=== PATIENT | male | born 1990 | race Caucasian/White ===

== ENCOUNTER → 2020-07-15 | Outpatient (REF) | payer OTHER ==
[~2020-07-15] MED LIST: MAPA325T8 PO
== END ==
LOC: M LAB REF 09:22
PROVIDERS: ATTEND Surgery
DX: Z20.828 Contact with and (suspected) exposure to other viral communicable diseases (principal)

== ENCOUNTER 2022-08-21 21:09 | Emergency (ER) | payer OTHER, SELFPAY ==
[2022-08-21 22:07] VITALS: BP 131/79; TEMP 98.3; O2SAT 100
[2022-08-21 22:41] LABS: HEMATOCRIT 41.5 % (42.0-52.0); HEMOGLOBIN 12.8 g/dl (13.5-17.5); MEAN CORPUSCULAR HEMOGLOBIN 26.7 pg (27.0-33.0); MEAN CORPUSCULAR HGB CONC 30.8 g/dl (32.0-36.5); MEAN CORPUSCULAR VOLUME 86.5 fl (80.0-96.0); PLATELET COUNT, AUTOMATED 300 10^3/uL (150-450); WHITE BLOOD COUNT 12.4 10^3/uL (4.0-10.0)
[2022-08-21] MEDS ORDERED: HOME MED LIST COMPLETE! XX SCH (22:50)
[2022-08-21 22:52] LABS: ETHYL ALCOHOL (ETHANOL) < 0.003 % (0.000-0.010)
[2022-08-21 22:53] LABS: SALICYLATE LEVEL < 3.0 MG/DL (<30)
[2022-08-21 22:54] LABS: ACETAMINOPHEN LEVEL < 2.0 UG/ML (10.0-20.0); ALKALINE PHOSPHATASE 75 U/L (46-116); ALT/SGPT 119 U/L (7.0-40); AST/SGOT 60 U/L (<34); BILIRUBIN,DIRECT 0.3 MG/DL (<0.4); BILIRUBIN,TOTAL 1.1 MG/DL (0.3-1.2); BLOOD UREA NITROGEN 24 MG/DL (9-23); CALCIUM LEVEL 9.6 MG/DL (8.5-10.1); CARBON DIOXIDE LEVEL 24 MMOL/L (20-31); CHLORIDE LEVEL 112 MMOL/L (98-107); CREATININE FOR GFR 1.01 MG/DL (0.70-1.30); GLOMERULAR FILTRATION RATE > 60.0 (>60); GLUCOSE, FASTING 137 MG/DL (60-100); POTASSIUM SERUM 3.4 MMOL/L (3.5-5.1); SODIUM LEVEL 148 MMOL/L (136-145); TOTAL PROTEIN 8.7 G/DL (5.7-8.2)
[2022-08-21 22:56] LABS: THYROID STIMULATING HORMONE 0.733 uIU/ML (0.55-4.78)
== END 2022-08-21 23:41 | disposition home or self-care (01) ==
LOC: M ED 21:09
DX: F19.10 Other psychoactive substance abuse, uncomplicated (principal); F17.200 Nicotine dependence, unspecified, uncomplicated; F43.0 Acute stress reaction

== ENCOUNTER 2024-12-06 21:40 | Inpatient (IN) | payer OTHER, SELFPAY ==
[~2024-12-06] VITALS: Ht 175.3 cm; Wt 83.0 kg
[2024-12-06 13:45] VITALS: BP 127/85; TEMP 98.2; O2SAT 100
[2024-12-06 22:14] LABS: PLATELET COUNT, AUTOMATED 240 10^3/uL (150-450)
[2024-12-06 22:47] LABS: ETHYL ALCOHOL (ETHANOL) < 0.003 % (0.000-0.010)
[2024-12-06 22:49] LABS: ALT/SGPT 129 U/L (7.0-40); AST/SGOT 60 U/L (<34); CALCIUM LEVEL 9.1 MG/DL (8.5-10.1); CARBON DIOXIDE LEVEL 26 MMOL/L (20-31); CHLORIDE LEVEL 104 MMOL/L (98-107); CREATININE FOR GFR 0.97 MG/DL (0.70-1.30); GLOMERULAR FILTRATION RATE > 90.0 (>60); POTASSIUM SERUM 4.0 MMOL/L (3.5-5.1); SALICYLATE LEVEL < 3.0 MG/DL (<30); SODIUM LEVEL 139 MMOL/L (136-145)
[2024-12-06] MEDS: LIDOCAINE 2% MDV 20 ML VIAL SC ONE (23:11)
[2024-12-07 01:28] LABS: AMPHETAMINES LEVEL URINE POSITIVE (NEGATIVE); BARBITURATES URINE NEGATIVE (NEGATIVE); BENZODIAZEPINES URINE NEGATIVE (NEGATIVE); CANNABINOIDS URINE NEGATIVE (NEGATIVE); COCAINE METABOLITE URINE POSITIVE (NEGATIVE); METHADONE URINE NEGATIVE (NEGATIVE); OPIATES URINE POSITIVE (NEGATIVE); PHENCYCLIDINE URINE NEGATIVE (NEGATIVE)
[2024-12-07] MEDS ORDERED: BUPR150T12 PO (02:11)
[2024-12-07] MEDS ORDERED: ADDE20TA PO (02:11)
[2024-12-07] MEDS ORDERED: HOME MED LIST COMPLETE! XX SCH (02:15)
[2024-12-07] MEDS: NICOTINE 14 MG/24 HR TRANSDERMAL TD SCH (09:00)
[2024-12-07] MEDS ORDERED: ACETAMINOPHEN 325 MG TAB PO PRN (11:35)
[2024-12-07] MEDS ORDERED: MOM 30 ML SUSPENSION UDC PO PRN (11:35)
[2024-12-07] MEDS ORDERED: MAALOX 30 ML SUSP *UDC PO PRN (11:35)
[2024-12-07] MEDS ORDERED: LOPERAMIDE 2 MG CAPLET PO PRN (11:40)
[2024-12-07] MEDS ORDERED: METH-1175 PO (11:56)
[2024-12-07] MEDS: METHADONE 10 MG TAB PO ONE (12:05)
[2024-12-07] MEDS: OLANZapine 5 MG TAB PO PRN (17:24)
[2024-12-08 06:44] VITALS: BP 122/73; TEMP 98.5; O2SAT 100
[2024-12-08] MEDS: ONDANSETRON 4MG ORAL DISINTEGRATING TAB PO PRN (06:50)
[2024-12-08] MEDS: DICYCLOMINE 10 MG CAP PO PRN (06:50)
[2024-12-08] MEDS: LORazepam 1 MG TAB PO PRN (06:55)
[2024-12-08 07:35] VITALS: BP 142/84; TEMP 98.3; O2SAT 100
[2024-12-08] MEDS ORDERED: HOME MED LIST COMPLETE! XX SCH (08:00)
[2024-12-08] MEDS: METHADONE 10 MG TAB PO ONE ×2 (08:35→16:02)
[2024-12-08] MEDS: HALOPERIDOL 5 MG TAB PO PRN (11:00)
[2024-12-08 11:50] VITALS: BP 155/77; TEMP 99.6; O2SAT 100
[2024-12-08] MEDS: AUGMENTIN 875 MG TAB PO SCH (14:07)
[2024-12-08] MEDS: DOXYCYCLINE HYCLATE 100 MG TABLET PO SCH (14:07)
[2024-12-08 15:26] VITALS: BP 141/69; TEMP 98.7; O2SAT 100
[2024-12-08] MEDS: IBUPROFEN 400 MG TAB PO PRN (16:01)
[2024-12-08] MEDS: traZODone 50 MG TAB PO PRN (20:51)
[2024-12-09 06:17] VITALS: BP 139/68; TEMP 98.6; O2SAT 99
[2024-12-09] MEDS: METHADONE 10 MG TAB PO SCH (09:02)
[2024-12-09 10:00] VITALS: BP 141/87; TEMP 97.7; O2SAT 100
== END 2024-12-09 10:39 | disposition home or self-care (01) | DRG 773 ==
LOC: M ED 21:40 → EDBD 21:40 → M ED INP 12-07 11:32 → M PSY 12-07 13:48
PROVIDERS: ADMIT Internal Medicine; ATTEND Internal Medicine
DX: F11.20 Opioid dependence, uncomplicated (principal); R45.851 Suicidal ideations; F15.90 Other stimulant use, unspecified, uncomplicated; F14.90 Cocaine use, unspecified, uncomplicated; F90.9 Attention-deficit hyperactivity disorder, unspecified type; F43.0 Acute stress reaction; Z65.3 Problems related to other legal circumstances; Z63.9 Problem related to primary support group, unspecified; Z59.89 Other problems related to housing and economic circumstances; R74.01 Elevation of levels of liver transaminase levels; Z79.899 Other long term (current) drug therapy; Z91.199 Patient's noncompliance with other medical treatment and regimen due to unspecified reason